=== PATIENT | male | born 1990 | race Native Hawaiian/Other Pacific Islander ===

== ENCOUNTER 2019-11-22 12:28 | Emergency (ER) | payer OTHER ==
[~2019-11-22] VITALS: Ht 180.3 cm; Wt 59.0 kg
[2019-11-22 12:28] VITALS: BP 112/82; TEMP 99
[2019-11-22 13:25] LABS: PLATELET COUNT 228 K/uL (142-355)
[2019-11-22 13:30] LABS: POTASSIUM 3.8 mmol/L (3.6-5.2)
== END 2019-11-22 16:39 | disposition home or self-care (01) ==
LOC: ED 12:37
PROVIDERS: Family Medicine
DX: F41.8 Other specified anxiety disorders (principal); F32.89 Other specified depressive episodes; R46.89 Other symptoms and signs involving appearance and behavior
CPT/HCPCS: 36415; 80053; 80307; 81000; 85027; 93005; 99285

== ENCOUNTER 2020-05-25 01:02 | Emergency (ER) | payer OTHER ==
[~2020-05-25] VITALS: Ht 180.3 cm; Wt 59.0 kg
[2020-05-25 01:08] VITALS: TEMP 98.7
[2020-05-25 01:31] LABS: PLATELET COUNT 538 K/uL (142-355)
[2020-05-25 01:32] LABS: POTASSIUM 4.6 mmol/L (3.6-5.2)
[2020-05-25 03:00] VITALS: BP 140/75
== END 2020-05-25 05:35 | disposition home or self-care (01) ==
LOC: ED 01:02
PROVIDERS: Hospitalist
DX: M79.662 Pain in left lower leg (principal); G89.29 Other chronic pain; Z98.890 Other specified postprocedural states; L03.116 Cellulitis of left lower limb
CPT/HCPCS: 36415; 80048; 85027; 87040; 96365; 96375; 99284; J1170; J1885; J3370

== ENCOUNTER 2020-07-09 18:41 | Inpatient (IN) | payer OTHER ==
[~2020-07-09] VITALS: Ht 180.3 cm; Wt 58.7 kg
[2020-07-09 18:55] VITALS: BP 127/78; TEMP 101.6
[2020-07-09 19:23] LABS: POTASSIUM 3.9 mmol/L (3.6-5.2)
[2020-07-09 19:26] LABS: PLATELET COUNT 235 K/uL (142-355)
[2020-07-09 19:37] LABS: PARTIAL THROMBOPLASTIN TIME 28.6 SECONDS (24.5-33.6)
[2020-07-09 19:45] VITALS: BP 124/76
[2020-07-09 20:00] VITALS: BP 116/70
[2020-07-09 20:15] VITALS: BP 104/64
[2020-07-09 20:30] VITALS: BP 113/59
[2020-07-09 21:00] VITALS: BP 114/60; TEMP 98.7
[2020-07-10] VITALS (7 sets, daily range): BP systolic 94–124; BP diastolic 55–73; TEMP 97.9–99.6; Ht 180.3 cm; Wt 58.7 kg
[2020-07-10 05:14] LABS: PLATELET COUNT 199 K/uL (142-355)
[2020-07-10 05:30] LABS: POTASSIUM 3.7 mmol/L (3.6-5.2)
[2020-07-11] VITALS: BP 114/70; TEMP 99.4
[2020-07-11 04:00] VITALS: BP 106/59; TEMP 100
[2020-07-11 07:21] LABS: PLATELET COUNT 226 K/uL (142-355)
[2020-07-11 08:00] VITALS: BP 114/72; TEMP 98.6
[2020-07-11 12:00] VITALS: BP 122/95; TEMP 98.6
[2020-07-11 16:00] VITALS: BP 124/76; TEMP 100.2
[2020-07-11 19:59] VITALS: BP 101/68; TEMP 99.8
[2020-07-12] VITALS: BP 120/71; TEMP 98.2
[2020-07-12 04:30] VITALS: BP 128/79; TEMP 98.3
[2020-07-12 05:22] LABS: PLATELET COUNT 219 K/uL (142-355)
[2020-07-12 05:37] LABS: POTASSIUM 3.8 mmol/L (3.6-5.2)
[2020-07-12 08:00] VITALS: BP 120/70; TEMP 99.3
[2020-07-12 12:00] VITALS: BP 113/71; TEMP 98.5
[2020-07-12 16:00] VITALS: BP 108/72; TEMP 98.9
[2020-07-12 20:00] VITALS: BP 108/72; TEMP 98.6
[2020-07-13] VITALS (7 sets, daily range): BP systolic 113–129; BP diastolic 61–82; TEMP 98.1–99.2
[2020-07-13 06:09] LABS: PLATELET COUNT 254 K/uL (142-355)
[2020-07-13 06:17] LABS: POTASSIUM 4.2 mmol/L (3.6-5.2)
[2020-07-14 04:21] VITALS: BP 118/74; TEMP 97.9
[2020-07-14 05:08] LABS: PLATELET COUNT 281 K/uL (142-355)
[2020-07-14 05:21] LABS: POTASSIUM 4.4 mmol/L (3.6-5.2)
[2020-07-14 08:00] VITALS: BP 104/67; TEMP 98
== END 2020-07-14 13:40 | disposition home or self-care (01) | DRG 872 ==
LOC: ED 18:41 → MED/SURG 20:00
PROVIDERS: Hospitalist; Internal Medicine Endocrinology, Diabetes & Metabolism
DX: A41.89 Other specified sepsis (principal); L03.116 Cellulitis of left lower limb; B95.62 Methicillin resistant Staphylococcus aureus infection as the cause of diseases classified elsewhere; K21.9 Gastro-esophageal reflux disease without esophagitis
CPT/HCPCS: 36415; 36416; 80048; 80053; 80202; 81000; 83605; 85027; 85379; 85610; 85730; 87040; 87070; 87077; 87185; 87186; 87205; 96365; 96372; 96375; 99284; J1170; J1650; J1885; J1956; J2405; J3370

== ENCOUNTER 2020-08-02 16:18 | Emergency (ER) | payer OTHER ==
[~2020-08-02] VITALS: Ht 180.3 cm; Wt 59.0 kg
[2020-08-02 18:49] LABS: PLATELET COUNT 287 K/uL (142-355)
[2020-08-03 06:30] LABS: PLATELET COUNT 223 K/uL (142-355)
[2020-08-03 06:34] LABS: POTASSIUM 3.6 mmol/L (3.6-5.2)
[2020-08-03 07:00] VITALS: TEMP 97.9
[2020-08-03 12:00] VITALS: BP 130/98
== END 2020-08-03 12:50 | disposition short-term general hospital (02) ==
LOC: ED 16:22
PROVIDERS: Emergency Medicine Emergency Medical Services
DX: L03.116 Cellulitis of left lower limb (principal); T84.623A Infection and inflammatory reaction due to internal fixation device of left tibia, initial encounter; T84.625A Infection and inflammatory reaction due to internal fixation device of left fibula, initial encounter
CPT/HCPCS: 36415; 80048; 83605; 85027; 87040; 96361; 96365; 96366; 96375; 96376; 99284; J1170; J2270; J2405; J2543; J3370

== ENCOUNTER 2020-08-19 14:14 | Emergency (ER) | payer OTHER ==
[~2020-08-19] VITALS: Ht 180.3 cm; Wt 59.0 kg
[2020-08-19 14:20] VITALS: BP 131/92; TEMP 99.2
[2020-08-19 16:36] LABS: POTASSIUM 3.9 mmol/L (3.6-5.2)
[2020-08-19 16:58] LABS: PLATELET COUNT 337 K/uL (142-355)
== END 2020-08-19 17:23 | disposition home or self-care (01) ==
LOC: ED 14:14
PROVIDERS: Hospitalist
DX: L03.116 Cellulitis of left lower limb (principal); S82.202G Unspecified fracture of shaft of left tibia, subsequent encounter for closed fracture with delayed healing; S82.402G Unspecified fracture of shaft of left fibula, subsequent encounter for closed fracture with delayed healing
CPT/HCPCS: 80053; 83605; 85027; 96366; 96374; 96375; 99284; J1885; J2270; J2405; J3370

== ENCOUNTER 2020-10-08 15:31 | Emergency (ER) | payer OTHER ==
[~2020-10-08] VITALS: Ht 180.3 cm; Wt 59.0 kg
[2020-10-08 17:17] LABS: PLATELET COUNT 326 K/uL (142-355)
[2020-10-08 17:21] LABS: POTASSIUM 3.9 mmol/L (3.6-5.2)
[2020-10-08 20:27] VITALS: BP 107/73; TEMP 99.9
== END 2020-10-08 20:27 | disposition home or self-care (01) ==
LOC: ED 15:31
PROVIDERS: Family Medicine
DX: M86.8X6 Other osteomyelitis, lower leg (principal); B95.62 Methicillin resistant Staphylococcus aureus infection as the cause of diseases classified elsewhere
CPT/HCPCS: 80053; 80307; 81000; 83605; 85027; 87040; 87070; 87077; 87185; 87186; 87205; 96372; 99283; J1885